=== PATIENT | female | born 1990 | race Caucasian/White ===

== ENCOUNTER 2018-06-20 08:34 | Emergency (ER) | payer MEDICAID, OTHER ==
[~2018-06-20] VITALS: Ht 160 cm; Wt 70.0 kg
[2018-06-20] MEDS ORDERED: OXYCODONE HCL/ACETAMINOPHEN 5/325MG TABLET PO ONE (10:45)
[2018-06-20 12:43] VITALS: BP 126/74
== END 2018-06-20 12:46 | disposition home or self-care (01) ==
LOC: ER 08:34
DX: S19.9XXA Unspecified injury of neck, initial encounter (principal); S09.90XA Unspecified injury of head, initial encounter; Z98.890 Other specified postprocedural states; V49.09XA Driver injured in collision with other motor vehicles in nontraffic accident, initial encounter; Y93.89 Activity, other specified; Y92.89 Other specified places as the place of occurrence of the external cause; Y99.8 Other external cause status
CPT/HCPCS: 81025; 93005; 99284

== ENCOUNTER 2022-01-20 04:33 | Emergency (ER) | payer MEDICAID ==
[~2022-01-20] VITALS: Ht 157.5 cm; Wt 75.5 kg
[2022-01-20] MEDS ORDERED: IBUP-2029 MT (05:13)
[2022-01-20] MEDS ORDERED: IBUPROFEN 800MG TABLET PO ONE (05:15)
[2022-01-20 05:30] VITALS: BP_SYST 130
[2022-01-20 05:36] VITALS: BP_DIAS 76
== END 2022-01-20 05:30 | disposition home or self-care (01) ==
LOC: ER 04:33
DX: S09.8XXA Other specified injuries of head, initial encounter (principal); S16.1XXA Strain of muscle, fascia and tendon at neck level, initial encounter; R03.0 Elevated blood-pressure reading, without diagnosis of hypertension; V49.59XA Passenger injured in collision with other motor vehicles in traffic accident, initial encounter; Y93.89 Activity, other specified; Y92.488 Other paved roadways as the place of occurrence of the external cause
CPT/HCPCS: 99282